=== PATIENT | male | born 1990 | race Two or more races ===

== ENCOUNTER 2017-03-02 13:23 | Emergency (ER) | payer SELFPAY ==
[~2017-03-02] VITALS: Ht 180.3 cm; Wt 83.9 kg
--- NOTE | 2017-03-02 13:30 | NUR ---
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 PA AT BS FOR EVAL. MARGIES HEAD/NECK TRAUMA. VSS. SAFETY AND COMFORT MEASURES PROVIDED. WILL MONITOR.
[2017-03-02] MEDS ORDERED: HYDROCODONE/APAP 5/325MG 1 EACH TABLET PO ONE (14:00)
--- NOTE | 2017-03-02 14:00 | NUR ---
PT TAKEN FOR XRAY.
[2017-03-02] MEDS ORDERED: HYDROCODONE/APAP 5/325MG 1 EACH TABLET ONE (14:01)
--- NOTE | 2017-03-02 14:10 | NUR ---
PT MEDICATED ORDERED.
--- NOTE | 2017-03-02 14:32 | NUR ---
Patient discharged to home in stable condition. Written and verbal after care instructions given. Patient verbalizes understanding of instruction.
[2017-03-02 14:43] VITALS: BP 132/65
== END 2017-03-02 14:59 | disposition home or self-care (01) ==
LOC: ER 13:26
DX: M54.5 Low back pain (principal); F17.200 Nicotine dependence, unspecified, uncomplicated
CPT/HCPCS: 72100; 99284; A4606; Z7610